=== PATIENT | female | born 1990 | race African-American/Black ===

== ENCOUNTER 2018-10-16 10:42 | Emergency (ER) | payer MEDICAID, OTHER ==
[~2018-10-16] VITALS: Ht 165.1 cm; Wt 78.0 kg
[~2018-10-16 10:42] MED LIST: CYCLOBENZAPRINE10 MG ORAL; IBUPROFEN800 MG ORAL
[2018-10-16] MEDS ORDERED: NKM (10:51)
[2018-10-16 11:09] VITALS: BP 148/91
--- NOTE | 2018-10-16 11:10 | NUR ---
ED Nurse Note:pt. came with sore throat for 2 days no fever
[2018-10-16] MEDS ORDERED: LIDOCAINE VISC100 ML ORAL (11:36)
[2018-10-16] MEDS ORDERED: AUGMENTIN 875-1 EAC1 ORAL (11:36)
[2018-10-16] MEDS ORDERED: IBUPROFEN600 MG ORAL (11:36)
[2018-10-16] MEDS ORDERED: Lidocaine 2% Visc 15ml soln ORAL ONE (11:45)
--- NOTE | 2018-10-16 11:45 | NUR ---
ER DISCHARGE NOTE:pain meds were given Patient is cleared to be discharged per ERMD, pt is aox4, on room air, with stable vital signs. pt was given dc and prescription instructions, pt was able to verbalize understanding, pt is able to ambulate with steady gait. pt took all belongings.
[2018-10-16 17:33] VITALS: BP 148/91
--- NOTE | 2018-10-21 14:39 | Emergency Room Report ---
History of Present Illness General Chief Complaint: Sore Throat Source: Patient Present Illness HPI Patient is a 28-year-old female presented after increased sore throat. Patient reports having symptoms for several days. She reports having some increased difficulty swallowing with associated fever. She denies any neck stiffness. She denies any voice changes. She had not been having any cough.Denies being . Allergies: Coded Allergies: No Known Allergies (Unverified , 05/21/14) Patient History Last Menstrual Period: 09/24/18 Nursing Documentation-[facility] Past Medical History: No Stated History Physical Exam General Appearance: well appearing, no apparent distress, alert, GCS 15 Head: normocephalic, atraumatic ENT: hearing grossly normal, normal voice, uvula midline, tonsillar swelling, tonsillar exudate Neck: full range of motion, supple Respiratory: chest non-tender, lungs clear, no respiratory distress, speaking full sentences Cardiovascular #1: normal inspection Gastrointestinal: normal inspection Musculoskeletal: no calf tenderness Neurologic: normal inspection, alert, oriented x3, responsive, inspector balance bridge III-XII nml as tested, normal gait Psychiatric: mood/affect normal Skin: no rash Medical Decision Making Diagnostic Impression: Primary Impression: Tonsillitis ER Course Patient present for sore throat. Differential diagnosis included but was not limited to meningitis, exudative tonsillitis, retropharyngeal abscess, epiglottitis, strep pharyngitis. Patient has a benign exam and does not appear to require any imaging or laboratory testing at this time. Patient was noted to have some tonsillitis and will be started on Decadron as well as oral antibiotics. Patient appears well-hydrated and is tolerating oral fluids.Patient was advised to follow-up with her primary care physician for recheck. Disposition: HOME, SELF-CARE Condition: Improved Scripts Ibuprofen* (MOTRIN*) 600 Mg Tablet 600 MG ORAL Q8H PRN for For Pain, #30 TAB 0 Refills Prov: Israel Willis MD 10/16/18 Lidocaine HCl 2% Viscous (Lidocaine HCl 2% Viscous) 100 Ml Solution 15 ML ORAL QID, #120 ML Prov: Israel Willis MD 10/16/18 Amoxicillin/Potassium Clav 875-125* (AUGMENTIN 875-125 TABLET*) 1 Each Tablet 1 TAB ORAL TWICE A DAY, #20 TAB Prov: Israel Willis MD 10/16/18 Referrals: [facility],REFERRING Patient Instructions: Tonsillitis Israel Willis MD October 21, 2018 14:39
== END 2018-10-16 11:45 | disposition home or self-care (01) ==
LOC: EMR 11:37
DX: J03.90 Acute tonsillitis, unspecified (principal)
CPT/HCPCS: 99282; J8540